=== PATIENT | male | born 1995 | race American Indian/Alaskan Native ===

== ENCOUNTER 2019-04-23 21:49 | Emergency (ER) | payer SELFPAY ==
[2019-04-23 22:00] VITALS: BP 119/68
--- NOTE | 2019-04-23 22:31 | Event Note ---
ED Screening Note ED Screening Note: feels like an object is stuck in his throat This initial assessment/diagnostic orders/clinical plan/treatment(s) is/are subject to change based on patients health status, clinical progression and re- assessment by fellow clinical providers in the ED. Further treatment and workup at subsequent clinical providers discretion. Patient/guardian urged not to elope from the ED as their condition may be serious if not clinically assessed and managed. Initial orders include: xr soft tissue
--- NOTE | 2019-04-23 23:10 | XRay Report ---
Soft tissue neck, 2 views INDICATION: Dysphagia FINDINGS: The prevertebral soft tissues are normal. There is no foreign body or abscess seen. Epiglot tis is unremarkable. No airway abnormality. No spurring or degenerative change of the cervical spine seen. No significant abnormality. Signer Name: Jon Ge MD Signed: 04/23/2019 11:05 PM Workstation Name: [id number]
--- NOTE | 2019-04-23 23:27 | Emergency Department Report ---
ED ENT HPI - General Chief complaint: Skin/Abscess/Foreign Body Stated complaint: SOB/CHOAKING/POSS FOREIGN OBJECT IN THROAT Time Seen by Provider: 04/23/19 23:05 Source: patient Mode of arrival: Ambulatory Limitations: No Limitations - History of Present Illness Initial comments: This is a 23-year-old -[place] male who presents to the emergency room with sore throat for 3 to 4 days. Patient states "I feel like something is stuck in my throat and worse with swallowing". States he don't recall eating anything and choking. Spouse states patient is choking in his sleep. He denies vocal changes, drooling, fever, chills. MD complaint: sore throat Onset/Timin -: days(s) Location: throat Severity scale (0 -10): 0 Worsens with: swallowing Associated Symptoms: pain with swallowing, sore throat. denies: fever, cough, gum swelling, toothache, tinnitus, hearing loss, discharge from ear, rhinorrhea - Related Data Previous Rx's Medication Instructions Recorded Last Taken Type Cyclobenzaprine [Flexeril] 10 mg PO QHS PRN #20 tablet 01/08/18 Unknown Rx Ibuprofen [Motrin] 800 mg PO Q8HR #30 tablet 01/08/18 Unknown Rx Nystas/Diphen/Xyl Visc/Mylanta 15 ml MM Q4H PRN #100 ml 04/24/19 Unknown Rx [Magic Mouthwash] Allergies Allergy/AdvReac Type Severity Reaction Status Date / Time No Known Allergies Allergy Verified 01/08/18 14:45 ED Dental HPI - General Chief complaint: Skin/Abscess/Foreign Body Stated complaint: SOB/CHOAKING/POSS FOREIGN OBJECT IN THROAT Time Seen by Provider: 04/23/19 23:05 Source: patient Mode of arrival: Ambulatory Limitations: No Limitations - Related Data Previous Rx's Medication Instructions Recorded Last Taken Type Cyclobenzaprine [Flexeril] 10 mg PO QHS PRN #20 tablet 01/08/18 Unknown Rx Ibuprofen [Motrin] 800 mg PO Q8HR #30 tablet 01/08/18 Unknown Rx Nystas/Diphen/Xyl Visc/Mylanta 15 ml MM Q4H PRN #100 ml 04/24/19 Unknown Rx [Magic Mouthwash] Allergies Allergy/AdvReac Type Severity Reaction Status Date / Time No Known Allergies Allergy Verified 01/08/18 14:45 ED Review of Systems ROS: Stated complaint: SOB/CHOAKING/POSS FOREIGN OBJECT IN THROAT Other details as noted in HPI Constitutional: denies: chills, fever ENT: throat pain. denies: ear pain Respiratory: denies: cough, shortness of breath, wheezing Cardiovascular: denies: chest pain, palpitations Gastrointestinal: denies: abdominal pain, nausea, diarrhea Musculoskeletal: denies: back pain, joint swelling, arthralgia Skin: denies: rash, lesions Neurological: denies: headache, weakness, paresthesias Psychiatric: denies: anxiety, depression ED Past Medical Hx - Past Medical History Previous Medical History?: No - Surgical History Past Surgical History?: No - Social History Smoking Status: Never Smoker Substance Use Type: Marijuana - Medications Home Medications: Home Medications Medication Instructions Recorded Confirmed Last Taken Type Cyclobenzaprine [Flexeril] 10 mg PO QHS PRN #20 tablet 01/08/18 Unknown Rx Ibuprofen [Motrin] 800 mg PO Q8HR #30 tablet 01/08/18 Unknown Rx Nystas/Diphen/Xyl Visc/Mylanta 15 ml MM Q4H PRN #100 ml 04/24/19 Unknown Rx [Magic Mouthwash] ED Physical Exam - General Limitations: No Limitations General appearance: alert, in no apparent distress - ENT ENT exam: Present: mucous membranes moist, TM's normal bilaterally, normal external ear exam. Absent: normal orophraynx (erythematous posterior phraynx, uvula midline without swelling, no exudate) - Neck Neck exam: Present: normal inspection. Absent: lymphadenopathy - Respiratory Respiratory exam: Present: normal lung sounds bilaterally. Absent: respiratory distress - Cardiovascular Cardiovascular Exam: Present: regular rate, normal rhythm. Absent: systolic murmur, diastolic murmur, rubs, gallop - GI/Abdominal GI/Abdominal exam: Present: soft, normal bowel sounds. Absent: distended, te nderness, guarding, rebound, rigid - Extremities Exam Extremities exam: Present: normal inspection - Neurological Exam Neurological exam: Present: alert, oriented X3, normal gait - Psychiatric Psychiatric exam: Present: normal affect, normal mood - Skin Skin exam: Present: warm, dry, intact, normal color. Absent: rash ED Course Vital Signs 04/23/19 21:59 Temperature 98.4 F Pulse Rate 93 H Respiratory 15 Rate Blood Pressure 119/68 O2 Sat by Pulse 98 Oximetry ED Medical Decision Making - Lab Data Lab Results 04/23/19 Range/Units 23:28 Group A Strep Rapid Negative (Negative) - Radiology Data Radiology results: report reviewed Soft tissue neck, 2 views INDICATION: Dysphagia FINDINGS: The prevertebral soft tissues are normal. There is no foreign body or abscess seen. Epiglottis is unremarkable. No airway abnormality. No spurring or degenerative change of the cervical spine seen. No significant abnormality. - Medical Decision Making This is a 23-year-old male that presents to the emergency room with sensation of foreign body in throat for 3 to 4 days. Vitals are stable and patient in no acute distress. X-ray of soft tissues of the neck and strep throat obtained. Rapid strep negative. X-ray findings no foreign body or abscess seen. Posterior pharynx is erythematous, uvula midline with no exudate. There is low suspicion of peritonsillar abscess, peritonsillar abscess, or tonsilitis. Symptoms are most likely viral pharyngitis. Start magic mouth wash. Referral to PCP for continued care. Referral to ENT PRN. Patient discharged home with strict return instructions. Critical care attestation.: If time is entered above; I have spent that time in minutes in the direct care of this critically ill patient, excluding procedure time. ED Disposition Clinical Impression: Sore throat (viral), Viral pharyngitis Disposition: TO HOME OR SELFCARE Is pt being admited?: No Condition: Stable Instructions: Pharyngitis (ED) Additional Instructions: Expect symptoms to improve within 3 or 4 days. There is no need for bed rest or isolation. Use Tylenol or Ibuprofen for symptoms of sore throat. Follow up with Primary Care Provider in 48-72 hours. Prescriptions: Nystas/Diphen/Xyl Visc/Mylanta [Magic Mouthwash] 15 ml MM Q4H PRN #100 ml PRN Reason: Pain , Severe (7-10) Referrals: [facility] [Outside] - 3-5 Days [facility] [Outside] - 3-5 Days TED GARRETT MD [Primary Care Provider] - 3-[address] [facility] [Provider Group] - 3-5 Days [facility] [Provider Group] - 3-5 Days Forms: Work/School Release Form(ED) Time of Disposition: 00:28
== END 2019-04-24 01:05 | disposition home or self-care (01) ==
LOC: ED 21:49
DX: J02.9 Acute pharyngitis, unspecified (principal)
CPT/HCPCS: 70360; 87116; 87430; 99284